=== PATIENT | male | born 1980 | race African-American/Black ===

== ENCOUNTER 2017-06-03 05:22 | Emergency (ER) | payer SELFPAY ==
[~2017-06-03] VITALS: Ht 180.3 cm; Wt 106.0 kg
[2017-06-03 06:40] LABS: CLARITY URINE CLEAR (CLEAR); COLOR URINE YELLOW (YELLOW); KETONES URINE NEGATIVE (NEGATIVE); LEUKOCYTE ESTERASE URINE NEGATIVE (NEGATIVE); NITRITE URINE NEGATIVE (NEGATIVE); OCCULT BLOOD URINE 2+ (NEGATIVE); PROTEIN URINE 1+ (NEGATIVE); SPECIFIC GRAVITY URINE 1.023 (1.005-1.030)
[2017-06-03 06:49] LABS: BASOPHILS % 0.7 % (0.0-2.0); EOSINOPHILS % 3.1 % (0.0-5.0); HEMATOCRIT. 45.1 % (42.0-52.0); HEMOGLOBIN. 15.3 g/dL (14.0-18.0); LYMPHOCYTES % 28.7 % (20.0-50.0); MEAN CORPUSCULAR HEMOGLOBIN 28.5 pg (28.0-32.0); MEAN CORPUSCULAR VOLUME 84.1 fL (80.0-94.0); MEAN PLATELET VOLUME 8.7 fl (7.4-10.4); MONOCYTES % 9.3 % (2.0-8.0); NEUTROPHILS % 58.2 % (40.0-76.0); PLATELET 230 x1000/uL (130-400); RED BLOOD CELL COUNT 5.37 mill/uL (4.7-6.1); RED CELL DISTRIBUTION WIDTH 13.7 % (11.6-14.6)
[2017-06-03 06:52] LABS: CHLORIDE 103 mEq/L (98-107)
[2017-06-03 06:56] LABS: ETHANOL BLOOD < 10 mg/dL
[2017-06-03 07:27] LABS: *AMPHETAMINES SCREEN URINE NEGATIVE (NEGATIVE)
[2017-06-03 07:28] LABS: *BARBITURATES SCREEN URINE NEGATIVE (NEGATIVE); *COCAINE SCREEN URINE NEGATIVE (NEGATIVE); CANNABINOID URINE SCREEN PRESUMTIVE POSITIVE (NEGATIVE); METHADONE URINE SCREEN NEGATIVE (NEGATIVE); OPIATES URINE SCREEN NEGATIVE (NEGATIVE); PHENCYCLIDINE URINE SCREEN NEGATIVE (NEGATIVE)
[2017-06-03 07:31] LABS: *BENZODIAZEPINES SCREEN URINE NEGATIVE (NEGATIVE)
[2017-06-03 07:56] VITALS: BP 157/98
[2017-06-03] MEDS ORDERED: ACETAMINOPHEN 325MG TABLET PO ONE (08:15)
[2017-06-03] MEDS ORDERED: ACETAMINOPHEN 325MG TABLET ONE (08:18)
== END 2017-06-03 08:15 | disposition home or self-care (01) ==
LOC: ER 05:45
DX: R56.9 Unspecified convulsions (principal); G93.89 Other specified disorders of brain; F12.90 Cannabis use, unspecified, uncomplicated; V43.52XA Car driver injured in collision with other type car in traffic accident, initial encounter; Y93.89 Activity, other specified; Y92.481 Parking lot as the place of occurrence of the external cause; Y99.8 Other external cause status
CPT/HCPCS: 36415; 70450; 80053; 80305; 81003; 85025; 93005; 99285; G0482

== ENCOUNTER 2017-09-20 10:32 | Emergency (ER) | payer MEDICAID ==
[~2017-09-20] VITALS: Ht 180.3 cm; Wt 115.0 kg
[2017-09-20 10:45] VITALS: BP 144/80
== END 2017-09-20 12:12 | disposition left against medical advice (07) ==
LOC: ER 10:32
DX: Z53.21 Procedure and treatment not carried out due to patient leaving prior to being seen by health care provider (principal)

== ENCOUNTER 2017-09-21 07:22 | Emergency (ER) | payer MEDICAID ==
[~2017-09-21] VITALS: Ht 180.3 cm; Wt 115.5 kg
[2017-09-21 07:46] VITALS: BP 133/89
== END 2017-09-21 08:34 | disposition home or self-care (01) ==
LOC: ER 07:22
DX: R56.9 Unspecified convulsions (principal); F12.10 Cannabis abuse, uncomplicated; Z76.0 Encounter for issue of repeat prescription
CPT/HCPCS: 99283